=== PATIENT | male | born 1985 | race Caucasian/White ===

== ENCOUNTER 2019-09-16 18:24 | Emergency (ER) | payer MEDICAID, OTHER ==
[2019-09-16] MEDS ORDERED: KETOROLAC TROMETHAMINE 60 MG/2 ML SDV IM ONE (19:21)
--- NOTE | 2019-09-16 20:01 | ER Document Report ---
ED General - General Chief Complaint: Fever Stated Complaint: FEVER/HEADACHE Time Seen by Provider: 09/16/19 19:20 Primary Care Provider: CAYETANO CHU MD [Primary Care Provider] - Follow up as needed Notes: Healthy 33-year-old male presents with 3 days of body aches frontal headache generalized weakness fatigue and fevers. No shortness of breath no cough no chest pain no loss of taste no COVID contacts no smoking no diabetes no other symptoms. Denies photophobia denies neck pain or stiffness. - Related Data Allergies/Adverse Reactions: lamotrigine [From Lamictal] Allergy (Verified 09/16/19 19:13) Home Medications: Adderall. Effexor. Clonipine. Propanolol. Hydroxyzine. "Mood stabilizer" Past Medical History - General Information source: Patient - Social History Smoking Status: Never Smoker Frequency of alcohol use: Occasional Drug Abuse: None Family History: Reviewed & Not Pertinent Patient has homicidal ideation: No - Past Medical History Cardiac Medical History: Reports: Hx Hypertension Psychiatric Medical History: Reports: Hx Bipolar Disorder - Immunizations Hx Diphtheria, Pertussis, Tetanus Vaccination: Yes Review of Systems - Review of Systems Notes: REVIEW OF SYSTEMS GEN: Very myalgias fatigue ENT: Denies sore throat, nasal discharge, ear pain EYES: Denies blurry vision, eye pain, discharge CV: Denies chest pain, palpitations, edema RESP: Denies cough, shortness of breath, wheezing GI: Denies abdominal pain, nausea, vomiting, diarrhea MSK: Denies joint pain/swelling, edema, SKIN: Denies rash, skin lesions LYMPH: Denies swollen glands/lymph nodes NEURO: Headache, denies, focal weakness or numbness, dizziness PSYCH: Denies depression, suicidal or homicidal ideation PHYSICAL EXAMINATION General: No acute distress, well-nourished Head: Atraumatic, normocephalic ENT: Mouth normal, oropharynx moist, no exudates or tonsillar enlargement Eyes: Conjunctiva normal, pupils equal, lids normal Neck: No JVD, supple, no guarding CVS: Normal rate, regular rhythm, no murmurs Resp: No resp distress, equal and normal breath sounds bilaterally GI: Nondistended, soft, no tenderness to palpation, no rebound or guarding Ext: No deformities, no edema, normal range of motion in upper and lower ext Back: No CVA or midline TTP Skin: No rash, warm Lymphatic: No lymphadeopathy noted Neuro: Awake, alert. Face symmetric. GCS 15. Physical Exam - Vital signs Vitals: Temp Pulse Resp BP Pulse Ox 99.0 F 115 H 20 139/86 H 98 09/16/19 18:32 09/16/19 18:32 09/16/19 18:32 09/16/19 18:32 09/16/19 18:32 Course - Re-evaluation Re-evalutation: 09/16/19 20:14 Well-appearing young gentleman with likely viral syndrome. Afebrile in the ED. No nuchal rigidity meningismus or other signs that he needs a tap or a CT scan. Likely COVID versus other viral infection. Swab and discharged with supportive care and follow-up instructions. He has no signs of pneumonia on exam does not require chest radiography at this time. I have discussed with the patient there likely diagnosis, aftercare plan, follow-up plans and my usual and customary return precautions. They verbalized understanding of this. - Vital Signs Vital signs: Temp Pulse Resp BP Pulse Ox 99.0 F 115 H 20 139/86 H 98 09/16/19 19:07 09/16/19 18:32 09/16/19 18:32 09/16/19 18:32 09/16/19 18:32 Discharge - Discharge Clinical Impression: Viral syndrome Condition: Good Disposition: HOME, SELF-CARE Additional Instructions: You have been evaluated for complaints or symptoms which could reflect infection with coronavirus/Covid-19 disease. Swab for coronavirus and until the results come back in about 48 hours you should assume you are infected. Please stay at home with minimal interaction to others, wash your hands, practice social distancing while at home, and remained at home without any travel outside of the home for: 1. At least 3 days (72 hours) have passed since recovery defined as resolution of fever without the use of fever-reducing medications and improvement in respiratory symptoms (e.g., cough, shortness of breath) AND 2. At least 7 days have passed since symptoms first appeared. Referrals: CAYETANO CHU MD [Primary Care Provider] - Follow up as needed
[2019-09-16 20:44] VITALS: BP 124/92
== END 2019-09-16 20:45 | disposition home or self-care (01) ==
LOC: ER 18:24
DX: B34.9 Viral infection, unspecified (principal); R50.9 Fever, unspecified; R51 Headache; R53.83 Other fatigue; Z88.8 Allergy status to other drugs, medicaments and biological substances; Z79.899 Other long term (current) drug therapy; I10 Essential (primary) hypertension; Z20.828 Contact with and (suspected) exposure to other viral communicable diseases
CPT/HCPCS: 99284; 96372; 36415; 87635; J1885; C9803

== ENCOUNTER 2020-02-12 17:20 | Inpatient (IN) | payer MEDICAID ==
[2020-02-12] MEDS ORDERED: RINGERS SOLUTION,LACTATED 1,000 ML IV ONE (17:33)
--- NOTE | 2020-02-12 17:37 | ER Document Report ---
ED Medical Screen (RME) - General Stated Complaint: POSSIBLE HIGH BLOOD SUGAR Time Seen by Provider: 02/12/20 17:30 Primary Care Provider: CAYETANO CHU MD [Primary Care Provider] - Follow up as needed Mode of Arrival: Ambulatory Information source: Patient Notes: HPI; 34-year-old male sent to the emergency room from [facility] for new onset diabetes. States his blood sugar was over 600 at the office with ketones in his urine. Patient states he has been having symptoms for approximately 6 weeks of polydipsia, polyuria. Patient states he had blood work ordered on February 02 by his psychiatrist and just got the results back today was referred to a primary care physician and then referred to the emergency room. No previous history of diabetes. Does have a family history positive for diabetes. PE: Alert and oriented x3. Lungs: Clear to auscultation without rales, rhonchi, wheezes. Heart: Tachycardic without murmurs, rubs, gallops. I have greeted and performed a rapid initial assessment of this patient. A comprehensive ED assessment and evaluation of the patient, analysis of test results and completion of the medical decision making process will be conducted by additional ED providers. I have specifically instructed the patient or family members with the patient to immediately return to any nursing staff should anything change in the patient's condition or with their chief complaint. TRAVEL OUTSIDE OF THE [place] IN LAST 30 DAYS: No - Related Data Allergies/Adverse Reactions: lamotrigine [From Lamictal] Allergy (Verified 09/16/19 19:13) Past Medical History - Past Medical History Cardiac Medical History: Reports: Hx Hypertension Psychiatric Medical History: Reports: Hx Bipolar Disorder - Immunizations Hx Diphtheria, Pertussis, Tetanus Vaccination: Yes Physical Exam - Vital signs Vitals: Temp Pulse Resp BP Pulse Ox 98.5 F 108 H 18 135/89 H 95 02/12/20 17:26 02/12/20 17:26 02/12/20 17:26 02/12/20 17:26 02/12/20 17:26 Course - Vital Signs Vital signs: Temp Pulse Resp BP Pulse Ox 98.5 F 108 H 18 135/89 H 95 02/12/20 17:26 02/12/20 17:26 02/12/20 17:26 02/12/20 17:26 02/12/20 17:26 Doctor's Discharge - Discharge Referrals: CAYETANO CHU MD [Primary Care Provider] - Follow up as needed
[2020-02-12 18:22] LABS: VENOUS BLOOD BASE EXCESS -1.6 mmol/L; VENOUS BLOOD HCO3 23.7 mmol/L (20-32); VENOUS BLOOD PCO2 41.9 mmHg (35-63); VENOUS BLOOD PH 7.37 (7.30-7.42)
[2020-02-12 18:26] LABS: ABSOLUTE BASOPHILS # (AUTO) 0.1 10^3/uL (0.0-0.2); ABSOLUTE LYMPHOCYTES (AUTO) 1.3 10^3/uL (0.5-4.7); ABSOLUTE MONOCYTES (AUTO) 0.4 10^3/uL (0.1-1.4); ABSOLUTE NEUT (AUTO) 6.8 10^3/uL (1.7-8.2); BASOPHILS % (AUTO) 0.8 % (0-2); EOSINOPHILS % (AUTO) 0.2 % (0-6); HEMATOCRIT 47.2 % (37.9-51.0); HEMOGLOBIN 15.6 g/dL (13.5-17.0); LYMPHOCYTES % (AUTO) 14.7 % (13-45); MEAN CORPUSCULAR HEMOGLOBIN 28.5 pg (27.0-33.4); MEAN CORPUSCULAR VOLUME 87 fl (80-97); MONOCYTES % (AUTO) 5.1 % (3-13); PLATELET COUNT 185 10^3/uL (150-450); RED BLOOD COUNT 5.45 10^6/uL (4.35-5.55); RED CELL DISTRIBUTION WIDTH 13.5 % (11.5-14.0); SEGMENTED NEUTROPHILS % (AUTO) 79.2 % (42-78); TOTAL CELLS COUNTED % (AUTO) 100 %; WHITE BLOOD COUNT 8.6 10^3/uL (4.0-10.5)
[2020-02-12 18:37] LABS: ALBUMIN 4.7 g/dL (3.5-5.0); ALKALINE PHOSPHATASE 146 U/L (38-126); ANION GAP 19 (5-19); ASPARTATE AMINO TRANSFERASE 31 U/L (17-59); BILIRUBIN,DIRECT 0.1 mg/dL (0.0-0.4); BILIRUBIN,TOTAL 0.7 mg/dL (0.2-1.3); BLOOD UREA NITROGEN 11 mg/dL (7-20); CALCIUM 9.3 mg/dL (8.4-10.2); CARBON DIOXIDE 20 mmol/L (22-30); CHLORIDE 82 mmol/L (98-107); POTASSIUM 4.7 mmol/L (3.6-5.0)
[2020-02-12 18:52] LABS: GLUCOSE 909 mg/dL (75-110)
[2020-02-12] MEDS ORDERED: RINGERS SOLUTION,LACTATED 1,000 ML IV PRN (19:22)
--- NOTE | 2020-02-12 19:24 | ER Document Report ---
ED General - General Chief Complaint: High Blood Sugar Stated Complaint: POSSIBLE HIGH BLOOD SUGAR Time Seen by Provider: 02/12/20 17:30 Primary Care Provider: CAYETANO CHU MD [NO LOCAL MD] - Follow up as needed Mode of Arrival: Ambulatory TRAVEL OUTSIDE OF THE [place] IN LAST 30 DAYS: No - HPI Notes: 34-year-old male presents with high blood sugar. Patient states that for the past month and a half he has had unquenchable thirst states that he is freq uently drinking anything he can get his hands on. He also notes that he has been urinating about every 30 minutes. He has had a couple episodes of lightheadedness and blurred vision which have occurred intermittently over the past 6 weeks. He also notes that he has had some yeast growing under his foreskin. He addressed his symptoms with his psychiatrist who ordered labs and found him to be hyperglycemic to the 600s, he went to urgent care and then to the emergency department. He states his mother is a diabetic and has a long family history of diabetes. He states since he has had his symptoms he is only been trying to eat fruits. However before his symptoms he had a very poor diet, stating "I ate what ever I wanted". He takes Adderall, clonazepam and sertraline He has been on Rexulti however that was discontinued today. He states he is also lost 45 pounds in the past month and a half. - Related Data Allergies/Adverse Reactions: lamotrigine [From Lamictal] Allergy (Verified 09/16/19 19:13) Past Medical History - General Information source: Patient - Social History Smoking Status: Unknown if Ever Smoked Family History: Reviewed & Not Pertinent Patient has homicidal ideation: No - Past Medical History Cardiac Medical History: Reports: Hx Hypertension Psychiatric Medical History: Reports: Hx Bipolar Disorder - Immunizations Hx Diphtheria, Pertussis, Tetanus Vaccination: Yes Review of Systems - Review of Systems Constitutional: Weight loss EENT: Blurred vision - Intermittent, denies currently Cardiovascular: denies: Chest pain Respiratory: denies: Short of breath Gastrointestinal: denies: Abdominal pain Genitourinary: denies: Dysuria Male Genitourinary: See HPI Musculoskeletal: No symptoms reported Skin: No symptoms reported Hematologic/Lymphatic: No symptoms reported Neurological/Psychological: No symptoms reported Physical Exam - Vital signs Vitals: Temp Pulse Resp BP Pulse Ox 98.5 F 108 H 18 135/89 H 95 02/12/20 17:26 02/12/20 17:26 02/12/20 17:26 02/12/20 17:26 02/12/20 17:26 - General General appearance: Appears well, Alert In distress: None - HEENT Head: Normocephalic, Atraumatic Extraocular movements intact: Yes Pupils: PERRL Mucous membranes: Dry Neck: Supple - Respiratory Respiratory status: No: Tachypnea Breath sounds: Normal - Cardiovascular Rhythm: Regular Heart sounds: Normal auscultation Normal capillary refill: Yes - Abdominal Inspection: Obese Tenderness: Nontender - Extremities General upper extremity: Normal ROM General lower extremity: Normal ROM - Neurological Neuro grossly intact: Yes Cognition: Normal Orientation: AAOx4 - Psychological Associated symptoms: Normal affect - Skin Skin Temperature: Warm Course - Re-evaluation Re-evalutation: 34-year-old male here with 6 weeks of polydipsia, polyuria and intermittent lightheadedness/blurry vision. He had outpatient labs done today which showed hyperglycemia and ketones in his urine. He has a strong family history of diabetes. He is obese and reports a poor diet. He takes psychiatric medications however none that are obviously causes of diabetes. On exam he is well-appearing, no increased respirations, hemodynamically stable, abdomen soft. He had labs done through triage which show hyperglycemia to 909, pseudohyponatremia, normal pH and mild low bicarb of 20. Creatinine and potassium within normal limits. More so favoring HHS over DKA. He will be given 3 L of LR and then started on an insulin infusion. Discussed need for ad mission with him for which she is agreeable to. 02/12/20 20:27 Patient discussed with admission with Dr. Mendoza - Vital Signs Vital signs: Temp Pulse Resp BP Pulse Ox 98.5 F 108 H 18 135/89 H 95 02/12/20 17:26 02/12/20 17:26 02/12/20 17:26 02/12/20 17:26 02/12/20 17:26 - Laboratory Result Diagrams: 02/12/20 18:07 02/12/20 18:07 Laboratory results interpreted by me: 02/12/20 02/12/20 02/12/20 18:07 18:07 18:07 Seg Neutrophils % 79.2 H Sodium 121.4 L Chloride 82 L Carbon Dioxide 20 L Glucose 909 H* POC Glucose Hemoglobin A1c % > 14.0 H Alkaline Phosphatase 146 H Urine Glucose (UA) Urine Ketones 02/12/20 02/12/20 19:32 20:50 Seg Neutrophils % Sodium Chloride Carbon Dioxide Glucose POC Glucose 467 H* Hemoglobin A1c % Alkaline Phosphatase Urine Glucose (UA) >=500 H Urine Ketones 20 H Discharge - Discharge Clinical Impression: Diabetes mellitus, new onset, Hyperosmolar hyperglycemic state (HHS) Disposition: ADMITTED INPATIENT Admitting Provider: Reji (Hospitalist) Unit Admitted: Telemetry Referrals: CAYETANO CHU MD [NO LOCAL MD] - Follow up as needed
[2020-02-12] MEDS ORDERED: NYSTATIN TOPICAL POWDER 15 GM TP ONE (19:41)
[2020-02-12] MEDS ORDERED: NORMAL SALINE 100 ML with INSULIN REGULAR, HUMAN 100 UNIT IV PRN ×2 (19:42)
[2020-02-12] MEDS ORDERED: DEXTROSE 50%-WATER 25 GM/50 ML DISP.SYRIN IV PRN ×2 (19:42)
[2020-02-12] MEDS ORDERED: DEXTROSE 40% GEL 15 GM TUBE PO PRN ×2 (19:42)
[2020-02-12] MEDS ORDERED: GLUCAGON,HUMAN RECOMB 1 MG INJ IM PRN (19:42)
[2020-02-12 20:09] LABS: APPEARANCE,URINE CLEAR; BILIRUBIN,URINE NEGATIVE (NEGATIVE); COLOR,URINE COLORLESS; GLUCOSE, URINE >=500 mg/dL (NEGATIVE); KETONES,URINE 20 mg/dL (NEGATIVE); LEUKOCYTE ESTERASE,URINE NEGATIVE (NEGATIVE); NITRITE,URINE NEGATIVE (NEGATIVE); PROTEIN,URINE NEGATIVE (NEGATIVE); URINE SPECIFIC GRAVITY 1.029; UROBILINOGEN,URINE NEGATIVE mg/dL (<2.0)
[2020-02-12] MEDS ORDERED: ONDANSETRON HCL INJ/PF 4 MG/2 ML SDV IV PRN (21:20)
[2020-02-12] MEDS ORDERED: ONDANSETRON 4 MG TAB.RAPDIS PO PRN (21:20)
[2020-02-12] MEDS ORDERED: ACETAMINOPHEN 325 MG TABLET PO PRN (21:20)
--- NOTE | 2020-02-12 21:35 | PDOC H&P ---
History of Present Illness Admission Date/PCP: 02/12/20 21:02 DI PAIGE History of Present Illness: KAMI ADAMS II is a 34 year old male with past medical history significant fo r bipolar 1 disorder who presents with a 6-week history of progressive nausea/vomiting/generalized weakness/polyuria/polydipsia/weight loss of 45 pounds. Per patient, his psychiatrist checked hemoglobin A1c on him on 02/02 and this came back extremely elevated greater than 14 and they called him 1 day prior to admission and instructed him to be seen by another physician who can treat his diabetes. Patient went to urgent care and they told him he had to go to the ER because he had ketones in his urine. On admission, patient's blood sugar is 909 with an A1c greater than 14. Sodium resulted as 121.4 but when corrected for the glucose is actually 134. Patient states his mother has type 1 diabetes and is also insulin-dependent. Patient has bipolar 1 disorder and states he takes Zoloft, Adderall, clonazepam. He does not know any of the dosages or frequencies these medications and these will need to be obtained tomorrow. Patient started on insulin drip where he will have a slow controlled drop in his blood sugar to an acceptable number. He was given IV fluids in the ED nasal be continued on admission. lehr loader consulted. Patient will certainly need insulin when he leaves the hospital given his markedly elevated A1c. Past Medical History Cardiac Medical History: Reports: Hypertension Endocrine Medical History: Reports: Diabetes Mellitus Type 1 Psychiatric Medical History: Reports: Bipolar Disorder Past Surgical History Past Surgical History: Reports: None Social History Information Source: Patient, Emergency Med Personnel Smoking Status: Never Smoker Electronic Cigarette use?: No Frequency of Alcohol Use: Rare Hx Recreational Drug Use: No Hx Prescription Drug Abuse: No - Advance Directive Resuscitation Status: Full Code Surrogate healthcare decision maker:: Admitting diagnosis: New onset type 1 diabetes mellitus All aspects of code status discussed with patient/POA including cardioversion, chest compressions, and intubation and the patient/POA indicated they wish to be full code MPOA is designated as: Destiny Wang Time spent: Greater than 16 minutes Family History Family History: Reviewed & Not Pertinent, DM Parental Family History Reviewed: Yes Children Family History Reviewed: Yes Sibling(s) Family History Reviewed.: Yes Medication/Allergy Home Medications: Methylprednisolone [Medrol 4 mg Dosepack 21 Tab/Pack] 4 mg PO ASDIR PRN #21 tab.ds.pk 08/02/12 Nystatin/Dexameth/Diphen [Magic Mouthwash] 5 ml PO QID #120 ml 08/02/12 Oxycodone HCl/Acetaminophen [Percocet 5-325 mg Tablet] 1 - 2 tab PO ASDIR PRN #15 tablet 08/02/12 Allergies/Adverse Reactions: lamotrigine [From Lamictal] Allergy (Verified 09/16/19 19:13) Review of Systems All systems: reviewed and no additional remarkable complaints except as stated - Per HPI otherwise negative Physical Exam Vital Signs: Temp Pulse Resp BP Pulse Ox 98.5 F 108 H 18 135/89 H 95 02/12/20 17:26 02/12/20 17:26 02/12/20 17:26 02/12/20 17:26 02/12/20 17:26 Intake & Output 02/11/20 02/12/20 02/13/20 06:59 06:59 06:59 Intake Total 1999 Balance 1999 Weight 106.8 kg Exam: General appearance: PRESENT: no acute distress, well-developed, well-nourished, obese with BMI 32.8 Head exam: PRESENT: atraumatic, normocephalic Eye exam: PRESENT: conjunctiva pink. ABSENT: scleral icterus Mouth exam: PRESENT: moist Respiratory exam: PRESENT: clear to auscultation dagmar. ABSENT: rales, rhonchi, wheezes Cardiovascular exam: PRESENT: RRR. ABSENT: diastolic murmur, rubs, systolic murmur GI/Abdominal exam: PRESENT: normal bowel sounds, soft. ABSENT: distended, guarding, mass, organolmegaly, rebound, tenderness Neurological exam: PRESENT: alert, awake, oriented to person, oriented to place, oriented to time, oriented to situation Psychiatric exam: PRESENT: appropriate affect, normal mood Skin exam: PRESENT: dry, intact, warm Results Laboratory Results: 02/12/20 18:07 02/12/20 18:07 02/12/20 02/12/20 02/12/20 18:07 18:07 18:07 WBC 8.6 RBC 5.45 Hgb 15.6 Hct 47.2 MCV 87 MCH 28.5 MCHC 33.0 RDW 13.5 Plt Count 185 Seg Neutrophils % 79.2 H VBG pH 7.37 VBG pCO2 41.9 VBG HCO3 23.7 VBG Base Excess -1.6 Sodium 121.4 L Potassium 4.7 Chloride 82 L Carbon Dioxide 20 L Anion Gap 19 BUN 11 Creatinine 0.78 Est GFR ( Amer) > 60 Glucose 909 H* Calcium 9.3 Total Bilirubin 0.7 AST 31 Alkaline Phosphatase 146 H Total Protein 7.0 Albumin 4.7 Urine Color Urine Appearance Urine pH Ur Specific [place] Urine Protein Urine Glucose (UA) Urine Ketones Urine Blood Urine Nitrite Ur Leukocyte Esterase Urine WBC (Auto) Urine RBC (Auto) 02/12/20 19:32 WBC RBC Hgb Hct MCV MCH MCHC RDW Plt Count Seg Neutrophils % VBG pH VBG pCO2 VBG HCO3 VBG Base Excess Sodium Potassium Chloride Carbon Dioxide Anion Gap BUN Creatinine Est GFR ( Amer) Glucose Calcium Total Bilirubin AST Alkaline Phosphatase Total Protein Albumin Urine Color COLORLESS Urine Appearance CLEAR Urine pH 6.0 Ur Specific [place] 1.029 Urine Protein NEGATIVE Urine Glucose (UA) >=500 H Urine Ketones 20 H Urine Blood NEGATIVE Urine Nitrite NEGATIVE Ur Leukocyte Esterase NEGATIVE Urine WBC (Auto) 1 Urine RBC (Auto) 1 Assessment and Plan - Diagnosis (1) Hyperosmolar hyperglycemic state (HHS) Is this a current diagnosis for this admission?: Yes Plan: CO2 low, down to 20 on admission Due to diabetes mellitus, suspect type I A1c greater than 14 Insulin drip on admission Transition to subcutaneous insulin prior to discharge IV fluids for rehydration No gap on admission (2) Diabetes mellitus, new onset Is this a current diagnosis for this admission?: Yes Plan: Suspect type 1 diabetes Check [place] antibody Needs follow-up with cnc service technician Needs teaching on insulin dosing and using glucometer (3) Dehydration Is this a current diagnosis for this admission?: Yes Plan: IV fluids Trend BMP Pseudohyponatremia noted, sodium is actually 134 when corrected for blood sugar (4) Unintentional weight loss Is this a current diagnosis for this admission?: Yes Plan: Polydipsia/polyphagia/polyuria due to new onset diabetes (5) Metabolic acidosis due to diabetes mellitus Is this a current diagnosis for this admission?: Yes - Time Time Spent with patient: 35 or more minutes Medications reviewed and adjusted accordingly: Yes Anticipated Discharge Disposition: Home, Self Care Anticipated Discharge Timeframe: within 48 hours - Inpatient Certification Based on my medical assessment, after consideration of the patient's comorbidities, presenting symptoms, or acuity I expect that the services needed warrant INPATIENT care.: Yes I certify that my determination is in accordance with my understanding of Medicare's requirements for reasonable and necessary INPATIENT services [42 CFR 412.3e].: Yes Medical Necessity: Significant Comorbidiites Make Outpatient Treatment Too Risky, Need Close Monitoring Due to Risk of Patient Decompensation, Need For IV Fluids, Risk of Complication if Not Cared For in Hospital, Risk of Diagnosis Which Will Require Inpatient Eval/Care/Monitoring
[2020-02-13] MEDS: POTASSI CL 20 MEQ/NS 1L 1,000 ML IV PRN ×2 (01:28→08:08)
[2020-02-13 07:06] LABS: ABSOLUTE BASOPHILS # (AUTO) 0.1 10^3/uL (0.0-0.2); ABSOLUTE EOSINOPHILS # (AUTO) 0.1 10^3/uL (0.0-0.6); ABSOLUTE LYMPHOCYTES (AUTO) 2.1 10^3/uL (0.5-4.7); ABSOLUTE MONOCYTES (AUTO) 0.5 10^3/uL (0.1-1.4); BASOPHILS % (AUTO) 1.3 % (0-2); EOSINOPHILS % (AUTO) 1.4 % (0-6); HEMATOCRIT 40.9 % (37.9-51.0); HEMOGLOBIN 14.2 g/dL (13.5-17.0); LYMPHOCYTES % (AUTO) 31.2 % (13-45); MEAN CORPUSCULAR HEMOGLOBIN 28.5 pg (27.0-33.4); MEAN CORPUSCULAR HGB CONC 34.6 g/dL (32.0-36.0); MONOCYTES % (AUTO) 6.7 % (3-13); PLATELET COUNT 143 10^3/uL (150-450); RED BLOOD COUNT 4.98 10^6/uL (4.35-5.55); RED CELL DISTRIBUTION WIDTH 13.5 % (11.5-14.0); SEGMENTED NEUTROPHILS % (AUTO) 59.4 % (42-78); TOTAL CELLS COUNTED % (AUTO) 100 %; WHITE BLOOD COUNT 6.8 10^3/uL (4.0-10.5)
[2020-02-13 07:15] LABS: MEAN CORPUSCULAR VOLUME 82 fl (80-97)
[2020-02-13 07:26] LABS: ANION GAP 9 (5-19); BLOOD UREA NITROGEN 7 mg/dL (7-20); CARBON DIOXIDE 27 mmol/L (22-30); CHLORIDE 101 mmol/L (98-107); CHOLESTEROL 150.16 mg/dL (0-200); GLUCOSE 150 mg/dL (75-110); TRIGLYCERIDES 297 mg/dL (<150)
[2020-02-13 07:37] LABS: DIRECT LDL 100 mg/dL (<100)
[2020-02-13 07:38] LABS: VLDL CHOLESTEROL 59.4 mg/dL (10-31)
[2020-02-13 07:54] LABS: POTASSIUM 3.5 mmol/L (3.6-5.0)
[2020-02-13] MEDS: ENOXAPARIN SODIUM INJ 40 MG/0.4 ML DISP.SYRIN SUBCUT SCH (11:38)
[2020-02-13] MEDS: DOCUSATE SODIUM 100 MG CAPSULE PO SCH (11:40)
[2020-02-13] MEDS ORDERED: NORMAL SALINE 100 ML with INSULIN REGULAR, HUMAN 100 UNIT IV PRN ×2 (12:29)
[2020-02-13] MEDS ORDERED: INFLUENZA QUAD (6MOS+) 2020-21 VAC 0.5 ML SYR IM ONE (12:45)
--- NOTE | 2020-02-13 17:55 | PDOC PROGRESS REPORT ---
Subjective Date:: 02/13/20 Subjective:: As per admitting physician's note KAMI ADAMS II is a 34 year old male with past medical history significant for bipolar 1 disorder who presents with a 6- week history of progressive nausea/vomiting/generalized weakness/polyuria/polydipsia/weight loss of 45 pounds. Per patient, his psychiatrist checked hemoglobin A1c on him on 02/02 and this came back extremely elevated greater than 14 and they called him 1 day prior to admission and instructed him to be seen by another physician who can treat his diabetes. Patient went to urgent care and they told him he had to go to the ER because he had ketones in his urine. On admission, patient's blood sugar is 909 with an A1c greater than 14. Sodium resulted as 121.4 but when corrected for the glucose is actually 134. Patient states his mother has type 1 diabetes and is also insulin-dependent. Patient has bipolar 1 disorder and states he takes Zoloft, Adderall, clonazepam. He does not know any of the dosages or frequenc ies these medications and these will need to be obtained tomorrow. Patient started on insulin drip where he will have a slow controlled drop in his blood sugar to an acceptable number. He was given IV fluids in the ED nasal be continued on admission. miller apprentice consulted. Patient will certainly need insulin when he leaves the hospital given his markedly elevated A1c. 02/13/2020. No acute events overnight. Patient reporting considerable improvement of her symptoms, polyuria polydipsia is improving, patient has been on insulin drip and his blood glucose level is considerably lower than admission. Denies any fever, chills, nausea, vomiting. Reason For Visit: NEW ONSET INSULIN DEPENDENT DIABETES MELLITUS Physical Exam Vital Signs: Temp Pulse Resp BP Pulse Ox 98.0 F 86 16 124/76 98 02/13/20 15:48 02/13/20 15:48 02/13/20 15:48 02/13/20 15:48 02/13/20 15:48 Intake & Output 02/12/20 02/13/20 02/14/20 06:59 06:59 06:59 Intake Total 2037 1030 Balance 2037 103 Weight 106.8 kg 106.594 kg General appearance: PRESENT: no acute distress, obese, well-developed, well- nourished Head exam: PRESENT: atraumatic, normocephalic Respiratory exam: PRESENT: clear to auscultation dagmar. ABSENT: rales, rhonchi, wheezes GI/Abdominal exam: PRESENT: normal bowel sounds, soft. ABSENT: distended, guarding, mass, organolmegaly, rebound, tenderness Extremities exam: PRESENT: full ROM. ABSENT: calf tenderness, clubbing, pedal edema Neurological exam: PRESENT: alert, awake, oriented to person, oriented to place, oriented to time, oriented to situation, CN II-XII grossly intact. ABSENT: motor sensory deficit Results Laboratory Results: 02/13/20 06:30 02/13/20 06:30 02/12/20 02/12/20 02/12/20 18:07 18:07 18:07 WBC 8.6 RBC 5.45 Hgb 15.6 Hct 47.2 MCV 87 MCH 28.5 MCHC 33.0 RDW 13.5 Plt Count 185 Seg Neutrophils % 79.2 H VBG pH 7.37 VBG pCO2 41.9 VBG HCO3 23.7 VBG Base Excess -1.6 Sodium 121.4 L Potassium 4.7 Chloride 82 L Carbon Dioxide 20 L Anion Gap 19 BUN 11 Creatinine 0.78 Est GFR ( Amer) > 60 Glucose 909 H* Calcium 9.3 Phosphorus Magnesium Total Bilirubin 0.7 AST 31 Alkaline Phosphatase 146 H Total Protein 7.0 Albumin 4.7 Triglycerides Cholesterol LDL Cholesterol Direct VLDL Cholesterol HDL Cholesterol Lipase Urine Color Urine Appearance Urine pH Ur Specific [place] Urine Protein Urine Glucose (UA) Urine Ketones Urine Blood Urine Nitrite Ur Leukocyte Esterase Urine WBC (Auto) Urine RBC (Auto) 02/12/20 02/13/20 02/13/20 19:32 06:30 06:30 WBC 6.8 RBC 4.98 Hgb 14.2 Hct 40.9 MCV 82 D MCH 28.5 MCHC 34.6 RDW 13.5 Plt Count 143 L Seg Neutrophils % 59.4 VBG pH VBG pCO2 VBG HCO3 VBG Base Excess Sodium 137.2 Potassium 3.5 L D Chloride 101 Carbon Dioxide 27 Anion Gap 9 BUN 7 Creatinine 0.56 Est GFR ( Amer) > 60 Glucose 150 H Calcium 9.0 Phosphorus 4.0 Magnesium 2.2 Total Bilirubin AST Alkaline Phosphatase Total Protein Albumin Triglycerides 297 H Cholesterol 150.16 LDL Cholesterol Direct 100 VLDL Cholesterol 59.4 H HDL Cholesterol 24 L Lipase 41.6 Urine Color COLORLESS Urine Appearance CLEAR Urine pH 6.0 Ur Specific [place] 1.029 Urine Protein NEGATIVE Urine Glucose (UA) >=500 H Urine Ketones 20 H Urine Blood NEGATIVE Urine Nitrite NEGATIVE Ur Leukocyte Esterase NEGATIVE Urine WBC (Auto) 1 Urine RBC (Auto) 1 Assessment and Plan - Diagnosis (1) Diabetes mellitus, new onset Is this a current diagnosis for this admission?: Yes Plan: Blood glucose level much improved. Not sure if type I or type II, given age and family history likely type I. Anti-GLYNN 65 pending. Off of insulin drip. Continue diabetic diet. Basal, sliding scale, premeal insulin. Accu-Chek, hypoglycemia protocol, adjust doses as needed. Diabetic education. (2) Hyperlipidemia Is this a current diagnosis for this admission?: Yes Plan: Given patient age we will hold statins. Diet and lifestyle modification recommended. Patient will need to recheck his lipid panel in 6 weeks. Patient extensively counseled on diet and lifestyle modification. (3) Obesity (BMI 30.0-34.9) Is this a current diagnosis for this admission?: Yes Plan: BMI 32.8. Diet and lifestyle modification recommended. (4) Hyperosmolar hyperglycemic state (HHS) Is this a current diagnosis for this admission?: Yes Plan: Presented with CO2 low, down to 20 on admission Was likely due to diabetes mellitus, suspect type I A1c greater than 14 on admission. Also started on insulin drip insulin and transition to subcutaneous insulin prior to discharge No gap on admission. (5) Unintentional weight loss Is this a current diagnosis for this admission?: Yes Plan: Most likely due to new onset diabetes. Polydipsia/polyphagia/polyuria due to new onset diabetes Continue treating underlying diabetes. - Time Time Spent with patient: 25-34 minutes Medications reviewed and adjusted accordingly: Yes Anticipated Discharge Disposition: Home, Self Care Anticipated Discharge Timeframe: within 24 hours
[2020-02-13] MEDS ORDERED: INSULIN GLARGINE,HUM.REC.ANLOG 1,000 UNIT/10 ML VIAL SUBCUT SCH (22:00)
[2020-02-13] MEDS: INSULIN LISPRO 100 UNIT/ML 3 ML VIAL SUBCUT SCH (22:19)
[2020-02-14 05:53] LABS: ABSOLUTE BASOPHILS # (AUTO) 0.1 10^3/uL (0.0-0.2); ABSOLUTE EOSINOPHILS # (AUTO) 0.1 10^3/uL (0.0-0.6); ABSOLUTE LYMPHOCYTES (AUTO) 1.8 10^3/uL (0.5-4.7); ABSOLUTE MONOCYTES (AUTO) 0.3 10^3/uL (0.1-1.4); ABSOLUTE NEUT (AUTO) 4.1 10^3/uL (1.7-8.2); BASOPHILS % (AUTO) 0.9 % (0-2); EOSINOPHILS % (AUTO) 1.2 % (0-6); HEMATOCRIT 40.2 % (37.9-51.0); HEMOGLOBIN 13.6 g/dL (13.5-17.0); LYMPHOCYTES % (AUTO) 28.3 % (13-45); MEAN CORPUSCULAR HEMOGLOBIN 28.3 pg (27.0-33.4); MEAN CORPUSCULAR HGB CONC 33.8 g/dL (32.0-36.0); MEAN CORPUSCULAR VOLUME 84 fl (80-97); MONOCYTES % (AUTO) 5.4 % (3-13); PLATELET COUNT 142 10^3/uL (150-450); RED BLOOD COUNT 4.81 10^6/uL (4.35-5.55); RED CELL DISTRIBUTION WIDTH 13.3 % (11.5-14.0); SEGMENTED NEUTROPHILS % (AUTO) 64.2 % (42-78); TOTAL CELLS COUNTED % (AUTO) 100 %; WHITE BLOOD COUNT 6.4 10^3/uL (4.0-10.5)
[2020-02-14 06:15] LABS: ALBUMIN 3.5 g/dL (3.5-5.0); ALKALINE PHOSPHATASE 73 U/L (38-126); ANION GAP 14 (5-19); ASPARTATE AMINO TRANSFERASE 29 U/L (17-59); BILIRUBIN,DIRECT 0.2 mg/dL (0.0-0.4); BILIRUBIN,TOTAL 0.6 mg/dL (0.2-1.3); BLOOD UREA NITROGEN 6 mg/dL (7-20); CALCIUM 8.6 mg/dL (8.4-10.2); CARBON DIOXIDE 19 mmol/L (22-30); CHLORIDE 100 mmol/L (98-107); GLUCOSE 222 mg/dL (75-110); POTASSIUM 3.7 mmol/L (3.6-5.0); TOTAL PROTEIN 5.7 g/dL (6.3-8.2)
[2020-02-14] MEDS: INSULIN LISPRO 100 UNIT/ML 3 ML VIAL SUBCUT SCH ×6 (07:46→16:46)
[2020-02-14] MEDS ORDERED: INSULIN LISPRO 100 UNIT/ML 3 ML VIAL SUBCUT SCH (08:00)
[2020-02-14] MEDS: ENOXAPARIN SODIUM INJ 40 MG/0.4 ML DISP.SYRIN SUBCUT SCH (09:08)
[2020-02-14] MEDS: DOCUSATE SODIUM 100 MG CAPSULE PO SCH ×2 (09:08→09:09)
[2020-02-14] MEDS ORDERED: INSULIN GLARGINE,HUM.REC.ANLOG 1,000 UNIT/10 ML VIAL SUBCUT SCH (10:00)
--- OUTSIDE RECORDS SUMMARY | 2020-02-14 14:46 | XMS REPORT ---
:1985 [facility] [address] [place] [address] Care Team Providers Name Role Phone Unavailable Unavailable Unavailable Allergies, Adverse Reactions, Alerts This patient has no known allergies or adverse reactions. Medications This patient has no known medications. Problems This patient has no known problems. Procedures This patient has no known procedures. Results Test Description Test Time Test Comments Text Results Atomic Results Result Comments LIPID PANEL Test Item Value Reference Range Comments CHOLESTEROL, TOTAL (test code = 2093-3) 177 MG/DL 100-199 TRIGLYCERIDES (test code = 2571-8) 203 MG/DL 0-149 HDL CHOLESTEROL (test code = 2085-9) 33 MG/DL >39 VLDL CHOLESTEROL CORNELIA (test code = 05864-7) 36 MG/DL 5-40 LDL CHOL CALC ([facility]) (test code = 69325-6) 108 MG/DL 0-99 HEMOGLOBIN A1C Test Item Value Reference Range Comments HEMOGLOBIN A1C (test code = 4548-4) 13.4 % 4.8-5.6 CBC WITH DIFFERENTIAL/PLATELET Test Item Value Reference Range Comments WBC (test code = 6690-2) 8.2 X10E3/UL 3.4-10.8 RBC (test code = 789-8) 6 X10E6/UL 4.14-5.80 HEMOGLOBIN (test code = 718-7) 17.3 G/DL 13.0-17.7 HEMATOCRIT (test code = 4544-3) 48.8 % 37.5-51.0 MCV (test code = 787-2) 81 FL 79-97 MCH (test code = 785-6) 28.8 PG 26.6-33.0 MCHC (test code = 786-4) 35.5 G/DL 31.5-35.7 RDW (test code = 788-0) 12.9 % 11.6-15.4 PLATELETS (test code = 777-3) 242 X10E3/UL 150-450 NEUTROPHILS (test code = 770-8) 61 % LYMPHS (test code = 736-9) 28 % MONOCYTES (test code = 5905-5) 9 % EOS (test code = 713-8) 1 % BASOS (test code = 706-2) 1 % NEUTROPHILS (ABSOLUTE) (test code = 751-8) 5 X10E3/UL 1.4-7 .0 LYMPHS (ABSOLUTE) (test code = 731-0) 2.3 X10E3/UL 0.7-3.1 MONOCYTES(ABSOLUTE) (test code = 742-7) .7 X10E3/UL 0.1-0.9 EOS (ABSOLUTE) (test code = 711-2) .1 X10E3/UL 0.0-0.4 BASO (ABSOLUTE) (test code = 704-7) .1 X10E3/UL 0.0-0.2 IMMATURE GRANULOCYTES (test code = 24444-3) 0 % IMMATURE GRANS (ABS) (test code = 84007-7) 0 X10E3/UL 0.0-0 .1 COMP. METABOLIC PANEL (14) Test Item Value Reference Range Comments GLUCOSE (test code = 2345-7) 355 MG/DL 65-99 BUN (test code = 3094-0) 5 MG/DL 6-20 CREATININE (test code = 2160-0) .99 MG/DL 0.76-1.27 EGFR IF NONAFRICN AM (test code = 14360-9) 100 ML/MIN/1.73 >59 EGFR IF AFRICN AM (test code = 98995-1) 116 ML/MIN/1.73 >59 BUN/CREATININE RATIO (test code = 3097-3) 5 9-20 SODIUM (test code = 2951-2) 137 MMOL/L 134-144 POTASSIUM (test code = 2823-3) 4.3 MMOL/L 3.5-5.2 CHLORIDE (test code = 2075-0) 92 MMOL/L 96-106 CARBON DIOXIDE, TOTAL (test code = 8-9) 25 MMOL/L 20-29 CALCIUM (test code = 74962-2) 9.7 MG/DL 8.7-10.2 PROTEIN, TOTAL (test code = 2885-2) 7.5 G/DL 6.0-8.5 ALBUMIN (test code = 1751-7) 5.3 G/DL 4.0-5.0 GLOBULIN, TOTAL (test code = 27546-5) 2.2 G/DL 1.5-4.5 A/G RATIO (test code = 1759-0) 2.4 1.2-2.2 BILIRUBIN, TOTAL (test code = 1975-2) .6 MG/DL 0.0-1.2 ALKALINE PHOSPHATASE (test code = 6768-6) 118 IU/L 39-117 AST (SGOT) (test code = 1920-8) 27 IU/L 0-40 ALT (SGPT) (test code = 1742-6) 49 IU/L 0-44 Encounters Start End Encounter Admission Attending Care Care Encounter Date/Time Date/Time Type Type Clinicians Facility Department ID 2019-09-18 2019-09-18 Outpatient [facility] [id number] 00:00:00 00:00:00 [id number] Social History This patient has no known social history. Vital Signs This patient has no known vital signs.
[2020-02-14 17:13] VITALS: BP 133/84
--- NOTE | 2020-02-16 08:20 | PDOC DISCHARGE SUMMARY ---
Impression - Admit/DC Date/PCP Admission Date/Primary Care Provider: 02/12/20 21:02 ARTHUR PAIGE-Nely Discharge Date: 02/14/20 - Discharge Diagnosis (1) Diabetes mellitus, new onset Is this a current diagnosis for this admission?: Yes (2) Hyperlipidemia Is this a current diagnosis for this admission?: Yes (3) Obesity (BMI 30.0-34.9) Is this a current diagnosis for this admission?: Yes (4) Hyperosmolar hyperglycemic state (HHS) Is this a current diagnosis for this admission?: Yes (5) Unintentional weight loss Is this a current diagnosis for this admission?: Yes - Additional Information Resuscitation Status: Full Code Referrals: CAYETANO CHU MD [NO LOCAL MD] - Follow up as needed Prescriptions: Insulin Lispro [Humalog Insulin (Lispro) 100 unit/mL] 5 unit SUBCUT AC 30 Days #1 unit Insulin Lispro [Humalog Insulin (Lispro) 100 unit/mL] 0 - 12 unit SUBCUT ACHS 30 Days #1 unit Insulin Glargine,Hum.rec.anlog [Lantus Insulin 100 Unit/1 ml 10 ml] 22 unit SUBCUT Q12 30 Days #1 unit Diabetic Supplies,Miscell [Minimed Quick-Serter] 1 each MC DAILY 30 Days #1 miscell NS Home Medications: Clonazepam [Klonopin 1 mg Tablet] 1 mg PO HSP PRN 02/13/20 Dextroamphetamine/Amphetamine [Adderall 10 mg Tablet] 10 mg PO BID 02/13/20 Dextroamphetamine/Amphetamine [Adderall Xr 30 mg Capsule] 30 mg PO TID 02/13/20 Hydroxyzine Hcl 50mg 100 mg PO DAILY 02/13/20 Oxcarbazepine [Trileptal 150 mg Tablet] 300 mg PO TID 02/13/20 Sertraline HCl 100 mg PO DAILY 02/13/20 Diabetic Supplies,Miscell [Minimed Quick-Serter] 1 each MC DAILY 30 Days #1 miscell NS 02/14/20 Insulin Glargine,Hum.rec.anlog [Lantus Insulin 100 Unit/1 ml 10 ml] 22 unit SUBCUT Q12 30 Days #1 unit 02/14/20 Insulin Lispro [Humalog Insulin (Lispro) 100 unit/mL] 0 - 12 unit SUBCUT ACHS 30 Days #1 unit 02/14/20 Insulin Lispro [Humalog Insulin (Lispro) 100 unit/mL] 5 unit SUBCUT AC 30 Days #1 unit 02/14/20 History of Present Illiness History of Present Illness: As per admitting physician's note KAMI ADAMS II is a 34 year old male with past medical history significant for bipolar 1 disorder who presents with a 6- week history of progressive nausea/vomiting/generalized weakness/polyuria/polydipsia/weight loss of 45 pounds. Per patient, his psychiatrist checked hemoglobin A1c on him on 02/02 and this came back extremely elevated greater than 14 and they called him 1 day prior to admission and instructed him to be seen by another physician who can treat his diabetes. Patient went to urgent care and they told him he had to go to the ER because he had ketones in his urine. On admission, patient's blood sugar is 909 with an A1c greater than 14. Sodium resulted as 121.4 but when corrected for the g lucose is actually 134. Patient states his mother has type 1 diabetes and is also insulin-dependent. Patient has bipolar 1 disorder and states he takes Zoloft, Adderall, clonazepam. He does not know any of the dosages or frequencies these medications and these will need to be obtained tomorrow. Patient started on insulin drip where he will have a slow controlled drop in his blood sugar to an acceptable number. He was given IV fluids in the ED nasal be continued on admission. telehealth nurse educator consulted. Patient will certainly need insulin when he leaves the hospital given his markedly elevated A1c. Hospital Course Hospital Course: (1) Diabetes mellitus, new onset Blood glucose level much improved. Not sure if type I or type II, given age and family history likely type I. Anti-GLYNN 65 pending at time of discharge. Polyuria polydipsia improved significantly. Patient was sent home on Lantus, premeal insulin and sliding scale insulin. Patient was extensively advised on medication adherence and following up with his PCP for readjustment of his insulin dosage. Patient was given diabetic education and prescription for diabetic supplies. (2) Hyperlipidemia Given patient age we will hold statins. Diet and lifestyle modification recommended. Patient will need to recheck his lipid panel in 6 weeks. Patient extensively counseled on diet and lifestyle modification. (3) Obesity (BMI 30.0-34.9) BMI 32.8. Diet and lifestyle modification recommended. (4) Hyperosmolar hyperglycemic state (HHS) Presented with CO2 low, down to 20 on admission Was likely due to diabetes mellitus, suspect type I A1c greater than 14 on admission. Also started on insulin drip insulin and transition to subcutaneous insulin prior to discharge No gap on admission. (5) Unintentional weight loss Most likely due to new onset diabetes. Polydipsia/polyphagia/polyuria due to new onset diabetes Continue treating underlying diabetes. Physical Exam Vital Signs: Temp Pulse Resp BP Pulse Ox 97.4 F 92 16 133/84 H 100 02/14/20 17:10 02/14/20 17:10 02/14/20 17:10 02/14/20 17:10 02/14/20 17:10 Intake & Output 02/15/20 02/16/20 02/17/20 06:59 06:59 06:59 Intake Total 591 Balance 591 Weight 109.9 kg General appearance: PRESENT: no acute distress, well-developed, well-nourished Head exam: PRESENT: atraumatic, normocephalic Neck exam: ABSENT: carotid bruit, JVD, lymphadenopathy, thyromegaly Respiratory exam: PRESENT: clear to auscultation dagmar. ABSENT: rales, rhonchi, wheezes Cardiovascular exam: PRESENT: RRR. ABSENT: diastolic murmur, rubs, systolic murmur GI/Abdominal exam: PRESENT: normal bowel sounds, soft. ABSENT: distended, guarding, mass, organolmegaly, rebound, tenderness Neurological exam: PRESENT: alert, awake, oriented to person, oriented to place, oriented to time, oriented to situation, CN II-XII grossly intact. ABSENT: motor sensory deficit Results Laboratory Results: WBC 6.4 10^3/uL (4.0-10.5) 02/14/20 04:57 RBC 4.81 10^6/uL (4.35-5.55) 02/14/20 04:57 Hgb 13.6 g/dL (13.5-17.0) 02/14/20 04:57 Hct 40.2 % (37.9-51.0) 02/14/20 04:57 MCV 84 fl (80-97) 02/14/20 04:57 MCH 28.3 pg (27.0-33.4) 02/14/20 04:57 MCHC 33.8 g/dL (32.0-36.0) 02/14/20 04:57 RDW 13.3 % (11.5-14.0) 02/14/20 04:57 Plt Count 142 10^3/uL (150-450) L 02/14/20 04:57 Lymph % (Auto) 28.3 % (13-45) 02/14/20 04:57 Delta % (Auto) 5.4 % (3-13) 02/14/20 04:57 Eos % (Auto) 1.2 % (0-6) 02/14/20 04:57 Baso % (Auto) 0.9 % (0-2) 02/14/20 04:57 Absolute Neuts (auto) 4.1 10^3/uL (1.7-8.2) 02/14/20 04:57 Absolute Lymphs (auto) 1.8 10^3/uL (0.5-4.7) 02/14/20 04:57 Absolute Monos (auto) 0.3 10^3/uL (0.1-1.4) 02/14/20 04:57 Absolute Eos (auto) 0.1 10^3/uL (0.0-0.6) 02/14/20 04:57 Absolute Basos (auto) 0.1 10^3/uL (0.0-0.2) 02/14/20 04:57 Seg Neutrophils % 64.2 % (42-78) 02/14/20 04:57 VBG pH 7.37 (7.30-7.42) 02/12/20 18:07 VBG pCO2 41.9 mmHg (35-63) 02/12/20 18:07 VBG HCO3 23.7 mmol/L (20-32) 02/12/20 18:07 VBG Base Excess -1.6 mmol/L 02/12/20 18:07 Sodium 133.1 mmol/L (137-145) L 02/14/20 04:57 Potassium 3.7 mmol/L (3.6-5.0) 02/14/20 04:57 Chloride 100 mmol/L (98-107) 02/14/20 04:57 Carbon Dioxide 19 mmol/L (22-30) L 02/14/20 04:57 Anion Gap 14 (5-19) 02/14/20 04:57 BUN 6 mg/dL (7-20) L 02/14/20 04:57 Creatinine 0.57 mg/dL (0.52-1.25) 02/14/20 04:57 Est GFR ( Amer) > 60 (>60) 02/14/20 04:57 Est GFR (MDRD) Non-Af > 60 (>60) 02/14/20 04:57 Glucose 222 mg/dL (75-110) H 02/14/20 04:57 POC Glucose 226 mg/dL (70-110) H 02/14/20 15:42 Hemoglobin A1c % > 14.0 % (4.7-6.0) H 02/12/20 18:07 Calcium 8.6 mg/dL (8.4-10.2) 02/14/20 04:57 Phosphorus 4.0 mg/dL (2.5-4.5) 02/13/20 06:30 Magnesium 2.2 mg/dL (1.6-2.3) 02/13/20 06:30 Total Bilirubin 0.6 mg/dL (0.2-1.3) 02/14/20 04:57 Direct Bilirubin 0.2 mg/dL (0.0-0.4) 02/14/20 04:57 Neonat Total Bilirubin Not Reportable 02/14/20 04:57 Neonat Direct Bilirubin Not Reportable 02/14/20 04:57 Neonat Indirect Bili Not Reportable 02/14/20 04:57 AST 29 U/L (17-59) 02/14/20 04:57 ALT 34 U/L (<50) 02/14/20 04:57 Alkaline Phosphatase 73 U/L (38-126) 02/14/20 04:57 Total Protein 5.7 g/dL (6.3-8.2) L 02/14/20 04:57 Albumin 3.5 g/dL (3.5-5.0) 02/14/20 04:57 Triglycerides 297 mg/dL (<150) H 02/13/20 06:30 Cholesterol 150.16 mg/dL (0-200) 02/13/20 06:30 LDL Cholesterol Direct 100 mg/dL (<100) 02/13/20 06:30 VLDL Cholesterol 59.4 mg/dL (10-31) H 02/13/20 06:30 HDL Cholesterol 24 mg/dL (>40) L 02/13/20 06:30 Lipase 41.6 U/L (23-300) 02/13/20 06:30 Urine Color COLORLESS 02/12/20 19:32 Urine Appearance CLEAR 02/12/20 19:32 Urine pH 6.0 (5.0-9.0) 02/12/20 19:32 Ur Specific [place] 1.029 02/12/20 19:32 Urine Protein NEGATIVE mg/dL (NEGATIVE) 02/12/20 19:32 Urine Glucose (UA) >=500 mg/dL (NEGATIVE) H 02/12/20 19:32 Urine Ketones 20 mg/dL (NEGATIVE) H 02/12/20 19:32 Urine Blood NEGATIVE (NEGATIVE) 02/12/20 19:32 Urine Nitrite NEGATIVE (NEGATIVE) 02/12/20 19:32 Urine Bilirubin NEGATIVE (NEGATIVE) 02/12/20 19:32 Urine Urobilinogen NEGATIVE mg/dL (<2.0) 02/12/20 19:32 Ur Leukocyte Esterase NEGATIVE (NEGATIVE) 02/12/20 19:32 Urine WBC (Auto) 1 /HPF 02/12/20 19:32 Urine RBC (Auto) 1 /HPF 02/12/20 19:32 Urine Ascorbic Acid NEGATIVE (NEGATIVE) 02/12/20 19:32 Stroke Is this a Stroke Patient?: No Acute Heart Failure Is this a Heart Failure Patient?: No
== END 2020-02-14 17:35 | disposition home or self-care (01) | DRG 638 ==
LOC: ER 17:20 → EH 21:02 → 4S 02-13 11:54
PROVIDERS: ADMIT Internal Medicine; ATTEND Internal Medicine
DX: E13.00 Other specified diabetes mellitus with hyperosmolarity without nonketotic hyperglycemic-hyperosmolar coma (NKHHC) (principal); E87.2 Acidosis; E78.5 Hyperlipidemia, unspecified; E66.9 Obesity, unspecified; R63.4 Abnormal weight loss; F31.9 Bipolar disorder, unspecified; I10 Essential (primary) hypertension; E86.0 Dehydration; Z68.32 Body mass index [BMI] 32.0-32.9, adult; Z79.899 Other long term (current) drug therapy; Z23 Encounter for immunization; Z79.891 Long term (current) use of opiate analgesic; Z88.8 Allergy status to other drugs, medicaments and biological substances; Z83.3 Family history of diabetes mellitus; Z79.4 Long term (current) use of insulin
CPT/HCPCS: 36415; 80048; 80053; 80061; 81001; 82803; 82962; 83036; 83519; 83690; 83735; 84100; 85025; 90471; 90686; 96360; 96361; 99284; G0008; J1650; J1815; J3480; J3490; J7050; J7120